=== PATIENT | male | born 1965 | race Caucasian/White ===

== ENCOUNTER 2020-10-27 22:31 | Observation (INO) | payer BC ==
[2020-10-27] MEDS ORDERED: Pepcid 20 MG VIAL IV ONE ×2 (23:07→23:31)
[2020-10-27] MEDS ORDERED: LEVOFLOXACIN 750MG/150ML D5W 750 MG/150 ML BAG IV STA (23:07)
[2020-10-27] MEDS ORDERED: VENTOLIN COMMON CANISTER IH STA (23:10)
[2020-10-27] MEDS ORDERED: REMDESIVIR 200 MG in Sodium Chloride 0.9% 250 ML 250 ML IV ONE (23:10)
[2020-10-27] MEDS ORDERED: DECADRON 10MG INJ. IV ONE (23:10)
--- NOTE | 2020-10-27 23:17 | ERPHSYRPT ---
- History of Present Illness Time Seen by Provider: 10/27/20 22:32 Source: patient Exam Limitations: no limitations Patient Subjective Stated Complaint: "My breathing is getting worse." Triage Nursing Assessment: Patient reported new diagnosis of COVID and bilateral pneumonia two days prior. He reportd experiencing progressive shortness of breath and hypoxia on his home pulse-ox. Reported chest pain during coughing described as tightness. Reported diarrhea and low-grade fevers at home. He does not use oxygen at home. Oral mucosa pink/moist. Neck supple non-tender without JVD or lymphadenopathy. Symmetrical chest expansion. Heart tones S1/S2 regular rate and rhythm without extra sounds. Lungs vesicular with crackles in the posterior lower lobes. Abdomen obese non-distended. Bowel sounds present in all quadrants. Peripheral pulses +3 bilateral. No noted dependent edema. Physician History: 55 years old male presented in the ER with increasing shortness of breath for 1 week. Patient reports he tested positive for Covid 19 3 days ago and symptoms been going on for almost 8 days. Progressive dyspnea on exertion and rectal dry cough with generalized body aches and chest discomfort. He has finished course of Medrol Dosepak and Z-Leo with no significant relief.. Timing/Duration: week(s), constant, gradual onset, worse Activities at Onset: activity Severity of Dyspnea-Max: moderate Severity of Dyspnea-Current: moderate Modifying Factors: Improves With: activity. Worsens With: coughing, exertion Associated Symptoms: cough, chest pain/discomfort, fever, loss of appetite, wheezing, heaviness, productive cough, No leg swelling Allergies/Adverse Reactions: No Known Drug Allergies Allergy (Unverified 10/27/20 22:32) Hx Tetanus, Diphtheria Vaccination/Date Given: No Hx Influenza Vaccination/Date Given: No Hx Pneumococcal Vaccination/Date Given: No Travel Risk - International Travel Have you traveled outside of the country in past 3 weeks: No - Coronavirus Screening Are you exhibiting any of the following symptoms?: Yes Symptoms: Cough: New Onset, Shortness of Breath, Vomiting/Diarrhea Close contact with a COVID-19 positive Pt in past 14-21 Days: No - Vaccine Status Have you recieved a Covid-19 vaccination: No - Review of Systems Constitutional: Fever, Chills, Fatigue, Malaise Eyes: No Symptoms Ears, Nose, & Throat: Nose Congestion Respiratory: Cough, Dyspnea, Wheezing Cardiac: Chest Pain, Palpitations Abdominal/Gastrointestinal: No Symptoms Genitourinary Symptoms: No Symptoms Musculoskeletal: No Symptoms Skin: No Symptoms Neurological: No Symptoms Psychological: No Symptoms Endocrine: No Symptoms Hematologic/Lymphatic: No Symptoms Immunological/Allergic: No Symptoms (Wrist:) - Past Medical History Pertinent Past Medical History: Yes GI Medical History: Ulcer - Past Surgical History Past Surgical History: No - Social History Smoking Status: Former smoker Exposure to second hand smoke: No Drug Use: none Patient Lives Alone: No - Nursing Vital Signs Nursing Vital Signs: Initial Vital Signs Temperature 98.6 F 10/27/20 22:32 Pulse Rate 93 H 10/27/20 22:32 Respiratory Rate 22 10/27/20 22:32 Blood Pressure 117/74 10/27/20 22:32 O2 Sat by Pulse Oximetry 88 L 10/27/20 22:32 Pain Scale Pain Intensity 2 - Physical Exam General Appearance: no apparent distress, alert, anxiety Eye Exam: PERRL/EOMI, eyes nml inspection Ears, Nose, Throat Exam: hearing grossly normal, nasal congestion, pharyngeal erythema Neck Exam: normal inspection, non-tender, supple, full range of motion Respiratory Exam: diminished breath sounds, crackles/rales, wheezing Cardiovascular/Chest Exam: normal heart sounds, regular rate/rhythm Abdominal/Gastrointestinal Exam: soft, normal bowel sounds, No tenderness Extremity Exam: non-tender, normal range of motion Neurologic Exam: alert, oriented x 3, cooperative, 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 Skin Exam: normal color SpO2 Interpretation: normal SpO2: 88 O2 Delivery: Room Air - Course EKG Interpreted by Me: RATE ([id number]), Sinus Tach, NORMAL AXIS, NORMAL INTERVALS, Non-specific ST Changes Ordered Tests: Active Orders 24 hr Category Date Time Status [employer] STAT Care 10/27/20 23:09 Active EKG-ER Only STAT Care 10/27/20 23:07 Active IV Insertion STAT Care 10/27/20 23:07 Active Oxygen-ED Only Nasal Cannula 2 lpm Care 10/27/20 23:07 Active CHEST 1 VIEW (PORTABLE) Stat Exams 10/27/20 22:55 Taken CHEST WITH CONTRAST [CT] Stat Exams 10/28/20 00:34 Taken BLOOD CULTURE Stat Lab 10/27/20 22:50 Received CBC W DIFF Stat Lab 10/27/20 22:50 Completed CMP Stat Lab 10/28/20 00:00 Completed D-DIMER QUANTITATIVE Stat Lab 10/27/20 22:50 Completed Lactic Acid Stat Lab 10/27/20 23:07 Completed MAGNESIUM Stat Lab 10/27/20 22:50 Completed Manual Differential NC Stat Lab 10/27/20 22:50 Completed NT PRO BNP Stat Lab 10/27/20 22:50 Completed PROTIME WITH INR Stat Lab 10/27/20 22:50 Completed PTT Stat Lab 10/27/20 22:50 Completed TROPONIN Q3H Lab 10/27/20 22:50 Completed TROPONIN Q3H Lab 10/28/20 02:45 Received TROPONIN Q3H Lab 10/28/20 05:15 Ordered TROPONIN Q3H Lab 10/28/20 08:15 Ordered TROPONIN Q3H Lab 10/28/20 11:15 Ordered UA W/RFX UR CULTURE Stat Lab 10/27/20 23:09 Completed Respiratory MDI ONCE RT 10/27/20 23:45 Completed Respiratory Therapy Assessment DAILY RT 10/28/20 00:05 Active Transfer Order Routine Transfer 10/28/20 Ordered Medication Summary Discontinued Medications Generic Name Dose Route Start Last Admin Trade Name Freq PRN Reason Stop Dose Admin Albuterol Sulfate 4 puff 10/27/20 23:10 10/27/20 23:44 Ventolin Common Canister IH 10/27/20 23:11 4 puff ONCE STA Administration Dexamethasone Sodium Phosphate 6 mg 10/27/20 23:10 10/27/20 23:35 Decadron 10mg Inj. IV 10/27/20 23:11 6 mg STAT ONE Administration Dexamethasone Sodium Phosphate Confirm 10/27/20 23:31 Decadron 10mg Inj. Administered 10/27/20 23:32 Dose 10 mg .ROUTE .STK-MED ONE Famotidine 20 mg 10/27/20 23:07 10/27/20 23:35 Pepcid 20 Mg Vial IV 10/27/20 23:08 20 mg STAT ONE Administration Famotidine Confirm 10/27/20 23:31 Pepcid 20 Mg Vial Administered 10/27/20 23:32 Dose 20 mg IV .STK-MED ONE Levofloxacin/Dextrose 750 mg in 150 mls @ 100 mls/hr 10/27/20 23:07 10/28/20 01:20 Levofloxacin 750mg/150ml D5w IV 10/28/20 00:36 Infused STAT STA Infusion Remdesivir 200 mg/ Sodium 250 mls @ 125 mls/hr 10/27/20 23:10 10/27/20 23:51 Chloride IV 10/28/20 01:09 125 mls/hr ONCE ONE Administration Levofloxacin/Dextrose Confirm 10/27/20 23:32 Levofloxacin 750mg/150ml D5w Administered 10/27/20 23:33 Dose 750 mg in 150 mls @ ud IV .STK-MED ONE Piperacillin Sod/Tazobactam 100 mls @ 200 mls/hr 10/27/20 23:37 10/27/20 23:43 Sod 3.375 gm/ Sodium Chloride IV 10/28/20 00:06 200 mls/hr STAT ONE Administration Sodium Chloride Confirm 10/27/20 23:39 Sodium Chloride 100ml Mini-Bag Plus Administered 10/27/20 23:40 Dose 100 mls @ ud IV .STK-MED ONE Lorazepam 1 mg 10/28/20 01:01 10/28/20 01:03 Ativan 1 Mg PO 10/28/20 01:02 1 mg STAT ONE Administration Lorazepam Confirm 10/28/20 01:02 Ativan 1 Mg Administered 10/28/20 01:03 Dose 1 mg .ROUTE .STK-MED ONE Piperacillin Sod/Tazobactam Sod Confirm 10/27/20 23:39 Zosyn 3.375 Gm Vial Administered 10/27/20 23:40 Dose 3.375 gm IV .STK-MED ONE Lab/Rad Data: Laboratory Result Diagrams 10/27/20 22:50 10/28/20 00:00 Laboratory Results 10/28/20 10/28/20 10/27/20 Range/Units 01:07 00:00 23:09 WBC (4.0-10.5) K/mm3 RBC (4.1-5.6) M/mm3 Hgb (12.5-18.0) gm/dl Hct (42-50) % MCV (78-100) fl MCH (26-32) pg MCHC (32-36) g/dl RDW (11.5-14.0) % Plt Count (150-450) K/mm3 MPV (7.5-11.0) fl Segmented Neutrophils (36.-66.) % Lymphocytes (Manual) (24-44) % Monocytes (Manual) (0.0-12.0) % Platelet Estimate (NORMAL) RBC Morphology PT (8.83-12.87) SECONDS INR (0.8-3.0) APTT (24.1-36.1) SECONDS D-Dimer (215-500) ng/mL Sodium 131 L (137-145) mmol/L Potassium 3.9 (3.5-5.1) mmol/L Chloride 96 L (98-107) mmol/L Carbon Dioxide 27 (22-30) mmol/L Anion Gap 12.6 (5-15) MEQ/L BUN 15 (9-20) mg/dL Creatinine 0.91 (0.66-1.25) mg/dL Estimated GFR > 60.0 ML/MIN Glucose 99 (74-106) mg/dL Lactic Acid (0.4-2.0) Calcium 8.4 (8.4-10.2) mg/dL Magnesium (1.6-2.3) mg/dL Total Bilirubin 0.70 (0.2-1.3) mg/dL AST 100 H (17-59) U/L ALT 62 H (0-50) U/L Alkaline Phosphatase 66 (38-126) U/L Troponin I (0.000-0.034) ng/mL NT-Pro-B Natriuret Pep (0-900) pg/mL Serum Total Protein 6.5 (6.3-8.2) g/dL Albumin 3.7 (3.5-5.0) g/dL Urine Color YELLOW (YELLOW) Urine Appearance CLEAR (CLEAR) Urine pH 7.0 (5-6) Ur Specific [place] 1.015 (1.005-1.025) Urine Protein 100 (Negative) Urine Ketones TRACE (NEGATIVE) Urine Blood SMALL (0-5) Patrice/ul Urine Nitrite NEGATIVE (NEGATIVE) Urine Bilirubin NEGATIVE (NEGATIVE) Urine Urobilinogen NEGATIVE (0-1) mg/dL Ur Leukocyte Esterase NEGATIVE (NEGATIVE) Urine WBC (Auto) 0-2 (0-5) /HPF Urine RBC (Auto) NONE (0-2) /HPF U Epithel Cells (Auto) NONE (FEW) /HPF Urine Bacteria (Auto) NONE (NEGATIVE) /HPF Urine Culture Reflexed NO (NO) Urine Glucose NEGATIVE (NEGATIVE) mg/dL SARS-CoV-2 Ag (Rapid) POSITIVE A* (NEGATIVE) 10/27/20 10/27/20 10/27/20 Range/Units 23:07 22:50 22:50 WBC (4.0-10.5) K/mm3 RBC (4.1-5.6) M/mm3 Hgb (12.5-18.0) gm/dl Hct (42-50) % MCV (78-100) fl MCH (26-32) pg MCHC (32-36) g/dl RDW (11.5-14.0) % Plt Count (150-450) K/mm3 MPV (7.5-11.0) fl Segmented Neutrophils (36.-66.) % Lymphocytes (Manual) (24-44) % Monocytes (Manual) (0.0-12.0) % Platelet Estimate (NORMAL) RBC Morphology PT 12.6 (8.83-12.87) SECONDS INR 1.11 (0.8-3.0) APTT 30.4 (24.1-36.1) SECONDS D-Dimer 930 H* (215-500) ng/mL Sodium (137-145) mmol/L Potassium (3.5-5.1) mmol/L Chloride (98-107) mmol/L Carbon Dioxide (22-30) mmol/L Anion Gap (5-15) MEQ/L BUN (9-20) mg/dL Creatinine (0.66-1.25) mg/dL Estimated GFR ML/MIN Glucose (74-106) mg/dL Lactic Acid 1.6 (0.4-2.0) Calcium (8.4-10.2) mg/dL Magnesium (1.6-2.3) mg/dL Total Bilirubin (0.2-1.3) mg/dL AST (17-59) U/L ALT (0-50) U/L Alkaline Phosphatase (38-126) U/L Troponin I < 0.012 (0.000-0.034) ng/mL NT-Pro-B Natriuret Pep (0-900) pg/mL Serum Total Protein (6.3-8.2) g/dL Albumin (3.5-5.0) g/dL Urine Color (YELLOW) Urine Appearance (CLEAR) Urine pH (5-6) Ur Specific [place] (1.005-1.025) Urine Protein (Negative) Urine Ketones (NEGATIVE) Urine Blood (0-5) Patrice/ul Urine Nitrite (NEGATIVE) Urine Bilirubin (NEGATIVE) Urine Urobilinogen (0-1) mg/dL Ur Leukocyte Esterase (NEGATIVE) Urine WBC (Auto) (0-5) /HPF Urine RBC (Auto) (0-2) /HPF U Epithel Cells (Auto) (FEW) /HPF Urine Bacteria (Auto) (NEGATIVE) /HPF Urine Culture Reflexed (NO) Urine Glucose (NEGATIVE) mg/dL SARS-CoV-2 Ag (Rapid) (NEGATIVE) 10/27/20 10/27/20 Range/Units 22:50 22:50 WBC 7.8 (4.0-10.5) K/mm3 RBC 5.27 (4.1-5.6) M/mm3 Hgb 15.7 (12.5-18.0) gm/dl Hct 46.0 (42-50) % MCV 87.3 (78-100) fl MCH 29.8 (26-32) pg MCHC 34.1 (32-36) g/dl RDW 13.5 (11.5-14.0) % Plt Count 225 (150-450) K/mm3 MPV 10.5 (7.5-11.0) fl Segmented Neutrophils 76 H (36.-66.) % Lymphocytes (Manual) 20 L (24-44) % Monocytes (Manual) 4 (0.0-12.0) % Platelet Estimate NORMAL (NORMAL) RBC Morphology NORMAL PT (8.83-12.87) SECONDS INR (0.8-3.0) APTT (24.1-36.1) SECONDS D-Dimer (215-500) ng/mL Sodium (137-145) mmol/L Potassium (3.5-5.1) mmol/L Chloride (98-107) mmol/L Carbon Dioxide (22-30) mmol/L Anion Gap (5-15) MEQ/L BUN (9-20) mg/dL Creatinine (0.66-1.25) mg/dL Estimated GFR ML/MIN Glucose (74-106) mg/dL Lactic Acid (0.4-2.0) Calcium (8.4-10.2) mg/dL Magnesium 2.3 (1.6-2.3) mg/dL Total Bilirubin (0.2-1.3) mg/dL AST (17-59) U/L ALT (0-50) U/L Alkaline Phosphatase (38-126) U/L Troponin I (0.000-0.034) ng/mL NT-Pro-B Natriuret Pep 75.3 (0-900) pg/mL Serum Total Protein (6.3-8.2) g/dL Albumin (3.5-5.0) g/dL Urine Color (YELLOW) Urine Appearance (CLEAR) Urine pH (5-6) Ur Specific [place] (1.005-1.025) Urine Protein (Negative) Urine Ketones (NEGATIVE) Urine Blood (0-5) Patrice/ul Urine Nitrite (NEGATIVE) Urine Bilirubin (NEGATIVE) Urine Urobilinogen (0-1) mg/dL Ur Leukocyte Esterase (NEGATIVE) Urine WBC (Auto) (0-5) /HPF Urine RBC (Auto) (0-2) /HPF U Epithel Cells (Auto) (FEW) /HPF Urine Bacteria (Auto) (NEGATIVE) /HPF Urine Culture Reflexed (NO) Urine Glucose (NEGATIVE) mg/dL SARS-CoV-2 Ag (Rapid) (NEGATIVE) - Progress Progress: improved, re-examined Air Movement: fair Progress Note: 55 years old with positive Covid 19 and bilateral pneumonia was finished course of steroid and antibiotic is evaluated in the ER with worsening shortness of breath and getting hypoxic. Patient oxygen saturation is dropping to 88% on room air and currently on 2 L with sats around 94%. Chest x-ray bilateral pneumonia. Started on Levaquin/Zosyn and remdesivir along with Decadron. Has normal white count. D-dimers were 900, CTA will be done. I believe patient needs to be admitted, discussed with Dr. Doshi and patient is accepted for admission. 10/28/20 00:36 10/28/20 04:20 I have obtained CTA chest which is negative for pulmonary emboli sm. Showed groundglass opacities consistent with Covid pneumonia. Also has minimal pneumomediastinum with intact esophagus. Discussed with Dr. Doshi who does not think patient needs to be transferred and is comfortable in keeping him in here. Is maintaining oxygen saturation around 95% on room air with a heart rate in low 70s without any distress. Blood Culture(s) Obtained: Yes Antibiotics given: Yes Discussed with : Other (Mary) Will see patient in: hospital (full admit) Counseled pt/family regarding: lab results, diagnosis, rad results - Departure Departure Disposition: In-patient Admission Clinical Impression: COVID-19 Respiratory failure Qualifiers: Chronicity: acute Respiratory failure complication: hypoxia Qualified Code(s): J96.01 - Acute respiratory failure with hypoxia Pneumonia Qualifiers: Pneumonia type: due to unspecified organism Laterality: bilateral Lung location: unspecified part of lung Qualified Code(s): J18.9 - Pneumonia, unspecified organism Condition: Stable Critical Care Time: Yes Critical Care Time(excluding separately billable procedures): Critical 30-74 mins Referrals: DOCTOR,NO FAMILY [Primary Care Provider] -
[2020-10-27] MEDS ORDERED: DECADRON 10MG INJ. ONE (23:31)
[2020-10-27] MEDS ORDERED: LEVOFLOXACIN 750MG/150ML D5W 750 MG/150 ML BAG IV ONE (23:32)
[2020-10-27] MEDS ORDERED: Zosyn 3.375 GM Vial 3.375 GM in Sodium Chloride 100ML MINI-BAG PLUS 100 ML IV ONE (23:37)
[2020-10-27] MEDS ORDERED: Sodium Chloride 100ML MINI-BAG PLUS 100 ML IV ONE (23:39)
[2020-10-27] MEDS ORDERED: Zosyn 3.375 GM Vial IV ONE (23:39)
[2020-10-27 23:51] LABS: INR 1.11 (0.8-3.0); PROTIME 12.6 SECONDS (8.83-12.87)
[2020-10-27 23:53] LABS: PTT 30.4 SECONDS (24.1-36.1)
[2020-10-28 00:02] LABS: Hemoglobin 15.7 gm/dl (12.5-18.0); Mean Cell Volume 87.3 fl (78-100); Mean Corpuscular Hemoglobin 29.8 pg (26-32); Mean Corpuscular Hgb Concent. 34.1 g/dl (32-36); Mean Platelet Volume 10.5 fl (7.5-11.0); Platelet Count 225 K/mm3 (150-450); Red Blood Count 5.27 M/mm3 (4.1-5.6); Red Cell Distribution Width 13.5 % (11.5-14.0); White Blood Count 7.8 K/mm3 (4.0-10.5)
[2020-10-28 00:04] LABS: MAGNESIUM 2.3 mg/dL (1.6-2.3); NT PRO BNP 75.3 pg/mL (0-900)
[2020-10-28 00:19] LABS: ALBUMIN 3.7 g/dL (3.5-5.0); ALKALINE PHOSPHATASE 66 U/L (38-126); ANION GAP 12.6 MEQ/L (5-15); BLOOD UREA NITROGEN 15 mg/dL (9-20); CHLORIDE 96 mmol/L (98-107); Calcium 8.4 mg/dL (8.4-10.2); Carbon Dioxide 27 mmol/L (22-30); Creatinine 1 0.91 mg/dL (0.66-1.25); EST GLOMERULAR FILTRATION RATE > 60.0 ML/MIN; Glucose 99 mg/dL (74-106); Potassium 3.9 mmol/L (3.5-5.1); SGOT/AST 100 U/L (17-59); SGPT/ALT 62 U/L (0-50); SODIUM 131 mmol/L (137-145); Total Protein 6.5 g/dL (6.3-8.2)
[2020-10-28 00:35] LABS: Appearance CLEAR (CLEAR); Bilirubin NEGATIVE (NEGATIVE); Blood SMALL Ery/ul (0-5); Glucose NEGATIVE (NEGATIVE); Ketones TRACE (NEGATIVE); Leukocyte Esterase NEGATIVE (NEGATIVE); Nitrite NEGATIVE (NEGATIVE); Protein,Urine Dip 100 (Negative); Specific Gravity 1.015 (1.005-1.025); Urobilinogen NEGATIVE mg/dL (0-1); WBC 0-2 /HPF (0-5)
[2020-10-28] MEDS ORDERED: Ativan 1 MG PO ONE (01:01)
[2020-10-28] MEDS ORDERED: Ativan 1 MG ONE (01:02)
[2020-10-28 01:55] LABS: Lymphocytes 20 % (24-44); Monocyte 4 % (0.0-12.0); Neutrophils 76 % (36.-66.); Platelet Estimate NORMAL (NORMAL); Total Cells Counted 100
[2020-10-28 01:58] LABS: COVID AG -BINAX NOW RAPID TEST POSITIVE (NEGATIVE)
[2020-10-28] MEDS ORDERED: MORPHINE SULFATE 4 MG INJ IV PRN (04:58)
[2020-10-28] MEDS: VENTOLIN COMMON CANISTER IH SCH ×4 (05:33→20:05)
[2020-10-28] MEDS ORDERED: Sodium Chloride 100ML MINI-BAG PLUS 100 ML IV ONE (05:50)
[2020-10-28] MEDS ORDERED: Zosyn 3.375 GM Vial IV ONE (05:50)
[2020-10-28] MEDS: TYLENOL 325 MG PO PRN ×2 (05:57→21:49)
[2020-10-28] MEDS ORDERED: Zosyn 3.375 GM Vial 3.375 GM in Sodium Chloride 100ML MINI-BAG PLUS 100 ML IV SCH (06:00)
--- NOTE | 2020-10-28 07:31 | XRAY ---
Indication: Short of breath. Comparison: June 20, 2015. Portable chest underinflated with new diffuse bilateral patchy airspace disease without consolidation/large effusion. Remaining heart and bony thorax unremarkable.
--- NOTE | 2020-10-28 07:31 | XRAY ---
Indication: Chest pain, cough, short of breath, and weakness. Positive Covid 19. Multiple contiguous axial images obtained through the chest using 80 cc of Isovue-370 contrast and PE protocol. Comparison: None There is suboptimal opacification of the pulmonary arteries limiting evaluation for pulmonary embolus. No obvious central pulmonary embolus. Heart not enlarged. Aorta is normal in course and caliber. No pathologic mediastinal/hilar lymphadenopathy. Tiny pneumomediastinum without abnormal fluid collection. Suspect distal esophageal perforation. Lungs are inflated with diffuse bilateral patchy groundglass airspace disease. No consolidation/effusion. Bony thorax intact with minimal degenerative changes throughout the spine. Limited upper abdomen including adrenal glands are unremarkable. Impression: 1. Pulmonary embolus evaluation limited due to suboptimal opacification. No obvious central pulmonary embolus. 2. Diffuse bilateral patchy airspace disease. Commonly reported imaging features of Covid 19 pneumonia are present. Other processes such as influenza pneumonia and organizing pneumonia, as can be seen with drug toxicity and connective tissue disease, can cause a similar imaging pattern. 3. Pneumomediastinum. Suspect distal esophageal perforation. Comment: Preliminary interpretation was made by [facility]. No critical discrepancy.
[2020-10-28] MEDS ORDERED: Zofran 4 MG/2 ML VIAL IV PRN (08:45)
[2020-10-28] MEDS: ENOXAPARIN SODIUM SQ SCH ×4 (09:19→10:43)
[2020-10-28] MEDS: Pepcid 20 MG VIAL IV SCH ×2 (09:19→21:49)
[2020-10-28] MEDS ORDERED: DECADRON 10MG INJ. IV SCH (10:00)
[2020-10-28] MEDS: PHENERGAN WITH CODEINE SYRUP PO PRN ×2 (16:12→20:13)
[2020-10-28] MEDS ORDERED: REMDESIVIR 100 MG in Sodium Chloride 0.9% 100 ML BAG 100 ML IV SCH (18:00)
[2020-10-28] MEDS ORDERED: LEVOFLOXACIN 750MG/150ML D5W 750 MG/150 ML BAG IV SCH (22:00)
[2020-10-29] MEDS: PHENERGAN WITH CODEINE SYRUP PO PRN ×2 (04:49→08:55)
[2020-10-29] MEDS: VENTOLIN COMMON CANISTER IH SCH ×2 (05:16→10:25)
[2020-10-29 06:34] LABS: Hematocrit 42.4 % (42-50); Hemoglobin 14.1 gm/dl (12.5-18.0); Mean Cell Volume 87.8 fl (78-100); Mean Corpuscular Hemoglobin 29.2 pg (26-32); Mean Corpuscular Hgb Concent. 33.3 g/dl (32-36); Mean Platelet Volume 9.6 fl (7.5-11.0); Platelet Count 247 K/mm3 (150-450); Red Blood Count 4.83 M/mm3 (4.1-5.6); Red Cell Distribution Width 13.7 % (11.5-14.0); White Blood Count 8.7 K/mm3 (4.0-10.5)
[2020-10-29 07:00] LABS: ALBUMIN 3.4 g/dL (3.5-5.0); ALKALINE PHOSPHATASE 73 U/L (38-126); ANION GAP 7.7 MEQ/L (5-15); BLOOD UREA NITROGEN 13 mg/dL (9-20); CHLORIDE 99 mmol/L (98-107); Calcium 8.3 mg/dL (8.4-10.2); Carbon Dioxide 31 mmol/L (22-30); Creatinine 1 0.77 mg/dL (0.66-1.25); EST GLOMERULAR FILTRATION RATE > 60.0 ML/MIN; Glucose 133 mg/dL (74-106); Potassium 3.2 mmol/L (3.5-5.1); SGOT/AST 106 U/L (17-59); SGPT/ALT 82 U/L (0-50); SODIUM 135 mmol/L (137-145)
[2020-10-29 07:25] LABS: INR 1.18 (0.8-3.0); PROTIME 13.3 SECONDS (8.83-12.87)
[2020-10-29 07:42] LABS: Lymphocytes 11 % (24-44); Monocyte 2 % (0.0-12.0); Neutrophils 87 % (36.-66.); Total Cells Counted 100
[2020-10-29 07:43] LABS: Platelet Estimate NORMAL (NORMAL)
[2020-10-29] MEDS: Pepcid 20 MG VIAL IV SCH (09:35)
[2020-10-29] MEDS: ENOXAPARIN SODIUM SQ SCH (09:35)
[2020-10-29] MEDS ORDERED: DECADRON 10MG INJ. IV SCH (10:00)
[2020-10-29 12:34] VITALS: BP 115/70; PULSE 63; O2SAT 96
--- NOTE | 2020-10-30 14:35 | SSS ---
ADMISSION DIAGNOSIS: COVID pneumonia. DISCHARGE DIAGNOSES: 1) COVID PNEUMONIA. 2) HYPOXIA. HISTORY OF PRESENT ILLNESS: The patient is a 55 year-old white male his has COVID. He began to have chest heaviness, pressure, shortness of breath so he came to the emergency room. There he was found to have O2 saturations in the 80's on monitoring him at some point in the emergency room. He was easily stabilized and he was on 2 liters and sent to the floor. He was afebrile. He had no nausea, vomiting. He was just short of breath, cough, fever, aches and fatigue. He said he probably caught it from his . She does not know where she caught it at and she is doing fairly well. HOME MEDICATIONS: Pepcid 20 q.d., Albuterol 2 puffs every 4 hours PRN. ALLERGIES: NKDA. REVIEW OF SYSTEMS: HEENT: Runny nose, cough. No problems hearing or seeing. CHEST: Short of breath at rest right now. Short of breath on exertion for the last day, frequent cough occasionally productive. Nonsmoker. No history of pneumonia. CVS: Denies any heart disease, heart attack. ABDOMEN/GI: Does feel nauseated. No abdominal pain. EXTREMITIES: Fatigue, achiness. CONSTITUTIONAL: Fever, chills, malaise. SKIN: No edema. No cyanosis. No changes. SOCIAL HISTORY: , two adult children. Former smoker, does not really drink except socially. PHYSICAL EXAMINATION: The patient is alert, oriented and in moderate distress, feeling anxious. VITAL SIGNS: Temperature 97F, pulse 80, respirations 14. O2 saturations 88% on room air. HEENT: Pupils equal and reactive to light. NECK: Supple without adenopathy. CHEST: Clear. CVS: No murmurs or gallops. ABDOMEN: Soft. No masses or organomegaly. EXTREMITIES: Normal. No cyanosis. SKIN: Normal. HOSPITAL COURSE: The patient was treated with Levaquin, Remdesivir, Dexamethasone, Pepcid, Lovenox and Zosyn in the emergency room. I stopped the Zosyn and Levemir. The next morning when I came in to see him he does have bacterial pneumonia. His white count is low. His D-dimer was 7,000. Chest x-ray showed some bilateral fluffiness, no consolidation, with contrast we saw no pulmonary emboli. The patient was tired, anxious and worn out the first day due to taking Ativan to help him sleep. The next morning he was anxious but he was alert, orientated and asking good questions. I did also discuss his prognosis and care with this who seemed to understand everything and has recovered pretty quickly from her disease. He will go home on some oxygen as he does desaturate to 88 to 87 here. He has an oximeter at home. He may increase his oxygen somewhat. He is to return if the oxygen cannot be gotten up to 90 on 5 liters or if he gets more shortness of breath, more chest pain, vomiting. He can call for any questions of course. His prognosis is felt to be very good. He is to isolate seven days past any symptoms or ten days past the start of this disease. Will keep him on some prednisone for seven days, 40 mg for 7 days, 20 mg for 7 days. We also discussed getting the vaccine in two to three weeks and he is thinking about that and we discussed the different types and where to get them. PROGNOSIS: Good.
== END 2020-10-29 15:00 | disposition home or self-care (01) ==
LOC: ED 22:31 → INTOOBSV 10-28 04:55 → MED SURG 10-28 04:55 → UNDOADMOB 10-28 04:55 → MED SURG 10-28 04:55 → UNDODISOB 10-29 15:00
PROVIDERS: ADMIT Family Medicine; ATTEND Family Medicine
DX: U07.1 COVID-19 (principal); J12.82 Pneumonia due to coronavirus disease 2019; R09.02 Hypoxemia; Z79.899 Other long term (current) drug therapy; R19.7 Diarrhea, unspecified; R07.9 Chest pain, unspecified
CPT/HCPCS: 36000; 36415; 71045; 71260; 80053; 81001; 83605; 83735; 83880; 84484; 85025; 85379; 85610; 85730; 87040; 93005; 93041; 93268; 94640; 94762; 96360; 96365; 96367; 96368; 96374; 96375; 99000; 99285; 99291; G0378; J1100; J1650; J1956; J2270; A9270-GY